=== PATIENT | male | born 1985 | race Two or more races ===

== ENCOUNTER 2024-07-17 21:26 | Emergency (ER) | payer MEDICAID, OTHER ==
[~2024-07-17] VITALS: Ht 167.6 cm; Wt 82.1 kg
--- NOTE | 2024-07-17 21:58 | ED.PDOC ---
[place]. trauma (HPI) HPI Comments 38-year-old male Came to ER for fall injury. Patient was working at the roof earlier, when he accidentally fell off landing badly on his left side. Patient denies any head trauma or loss of consciousness. Patient complaining of anterior chest wall pain and abdominal pain, complaining of left shoulder, left elbow, and left knee pain as well. Chief Complaint: Fall Injury Time Seen by MD: 21:57 Reviewed notes: Nurses Notes Allergies: Coded Allergies: NO KNOWN ALLERGIES (Unverified , 07/17/24) Home Meds Active Scripts Gabapentin (Once-Daily) (Gabapentin) 300 Mg Tab, 300 MG PO Q6HP PRN, #60 TAB Prov:NENA LI MD 07/18/24 Hydrocodone-Acetaminophen (Hydrocodone Bitartrate/AC 5-325 mg) 1 Tab Tab, 1 TAB PO Q6HP PRN, #20 TAB Prov:NENA LI MD 07/18/24 Information Source: Patient Mode of Arrival: Ambulatory Severity: Moderate Timing: Minutes Duration: Since onset Location: Abdominal, Chest, (L) Elbow, (L) Knee, (L) Shoulder Mechanism: Fall Past Medical History PAST MEDICAL HISTORY: Denies Surgical History: Denies all surgeries Family History Family History: Reviewed,noncontributory to illness Social History Smoker: Non-Smoker Alcohol: Denies ETOH Use Drugs: Denies Drug Use Lives In: Home Constitutional: denies: chills, diaphoresis, fatigue, fever, malaise, sweats, weakness, others EENTM: denies: blurred vision, double vision, ear bleeding, ear discharge, ear drainage, ear pain, ear ringing, eye pain, eye redness, hearing loss, mouth pain, mouth swelling, nasal discharge, nose bleeding, nose congestion, nose pain, photophobia, tearing, throat pain, throat swelling, voice changes, others Respiratory: denies: cough, hemoptysis, orthopnea, SOB at rest, shortness of breath, SOB with excertion, stridor, wheezing, others Cardiovascular: reports: chest pain; denies: dizzy spells, diaphoresis, Dyspnea on exertion, edema, irregular heart beat, left arm pain, lightheadedness, palpitations, PND, syncope, others Gastrointestinal: reports: abdominal pain; denies: abdomen distended, blood streaked bowels, constipated, diarrhea, dysphagia, difficulty swallowing, hematemesis, melena, nausea, poor appetite, poor fluid intake, rectal bleeding, rectal pain, vomiting, others Genitourinary: denies: burning, dysuria, flank pain, frequency, hematuria, incontinence, penile discharge, penile sore, pain, testicle pain, testicle swelling, urgency, others Neurological: denies: dizziness, fainting, headache, left sided numbness, left sided weakness, numbness, paresthesia, pre-existing deficit, right sided numbness, right sided weakness, seizure, speech problems, tingling, tremors, weakness, others Musculoskeletal: reports: joint pain (Left shoulder, left elbow, left knee); denies: back pain, gout, joint swelling, muscle pain, muscle stiffness, neck pain, others Integumetry: denies: bruises, change in color, change in hair/nails, dryness, laceration, lesions, lumps, rash, wounds, others Allergic/Immunocompromised: denies: Difficulty Healing, Frequent Infections, Hi ves, Itching, others Hematologic/Lymphatic: denies: anemia, blood clots, easy bleeding, easy bruising, swollen glands, others Endocrine: denies: excessive hunger, excessive sweating, excessive thirst, excessive urination, flushing, intolerance to cold, intolerance to heat, unexplained weight gain, unexplained weight loss, others Psychiatric: denies: anxiety, bipolar disorder, depression, hopeless, panic disorder, schizophrenia, sleepless, suicidal, others Physical Exam General Appearance: No Apparent Distress, Normal HEENT: Normal ENT Inspection, Pharynx Normal, TMs Normal Neck: Full Range of Motion, Non-Tender, Normal, Normal Inspection Respiratory: Chest Non-Tender, Lungs Clear, No Accessory Muscle Use, No Respiratory Distress, Normal Breath Sounds Cardiovascular: No Edema, No JVD, No Murmur, No Gallop, Normal Peripheral P ulses, Regular Rate/Rhythm Breast Exam: Deferred Gastrointestinal: No Organomegaly, Non Tender, No Pulsatile Mass, Normal Bowel Sounds, Soft Genitalia: Deferred Pelvic: Deferred Rectal: Deferred Extremities: No calf tenderness, Normal capillary refill, Normal inspection, Normal range of motion, Non-tender, No pedal edema Musculoskeletal : Apperance: Normal Neurologic: Alert, press service reader II-XII nml as Tested, No Motor Deficits, Normal Affect, Normal Mood, No Sensory Deficits Cerebellar Function: Normal Reflexes: Normal Skin: Dry, Normal Color, Warm Lymphatic: No Adenopathy Was a procedure done? Was a procedure done?: No Differential Diagnosis Multiple Trauma: Fractures, Intraabdominal Injury, Pulmonary Contusion, Spine Injury, Other (Dislocation) X-Ray, Labs, Meds, VS Vital Signs Date Time Temp Pulse Resp B/P (MAP) Pulse Ox O2 Delivery O2 Flow Rate FiO2 07/18/24 00:56 80 25 120/74 (89) 95 07/18/24 00:03 73 19 134/75 07/18/24 00:00 73 19 134/75 (94) 95 07/17/24 22:16 70 23 131/79 07/17/24 22:00 70 23 96 Room Air* 0 21 07/17/24 22:00 99.1 70 23 131/79 (96) 96 99.1 07/17/24 21:40 99.6 80 16 112/71 (85) 98 99.6 Lab Test 07/17/24 22:05 Range/Units White Blood Count 10.6 4.4-10.8 10^3/uL Red Blood Count 5.21 4.5-5.90 10^6/uL Hemoglobin 15.9 13.5-17.5 g/dL Hematocrit 47.2 41.0-53.0 % Mean Corpuscular Volume 90.6 80.0-100.0 fL Mean Corpuscular Hemoglobin 30.5 28.0-32.0 pg Mean Corpuscular Hemoglobin Concent 33.7 32.0-36.0 g/dL Red Cell Distribution Width 12.8 11.8-14.3 % Platelet Count 302 140-450 10^3/uL Mean Platelet Volume 7.9 6.9-10.8 fL Neutrophils (%) (Auto) 83.5 H 37.0-80.0 % Lymphocytes (%) (Auto) 12.3 10.0-50.0 % Monocytes (%) (Auto) 3.5 0.0-12.0 % Eosinophils (%) (Auto) 0.4 0.0-7.0 % Basophils (%) (Auto) 0.3 0.0-2.0 % Neutrophils # (Auto) 8.9 H 1.6-8.6 10 ^3/uL Lymphocytes # (Auto) 1.3 0.4-5.4 10 ^3/uL Monocytes # (Auto) 0.4 0-1.3 10 ^3/uL Eosinophils # (Auto) 0 0-0.8 10 ^3/uL Basophils # (Auto) 0 0-0.2 10 ^3/uL Nucleated Red Blood Cells 0.0 % Sodium Level 142 136-145 mmol/L Potassium Level 4.3 3.5-5.1 mmol/L Chloride Level 108 H 98-107 mmol/L Carbon Dioxide Level 26 20-31 mmol/L Anion Gap 8 5-15 Blood Urea Nitrogen 13 9-23 mg/dL Creatinine 0.94 0.700-1.30 mg/dL Glomerular Filtration Rate Calc 106 >90 mL/min BUN/Creatinine Ratio 13.8 10.0-20.0 Serum Glucose 90 74-106 mg/dL Calcium Level 10.1 8.7-10.4 mg/dL Total Bilirubin 0.5 0.2-1.0 mg/dL Aspartate Amino Transferase (AST) 29 13-40 U/L Alanine Aminotransferase (ALT) 41 H 7-40 U/L Alkaline Phosphatase 50 46-116 U/L Total Protein 7.1 5.7-8.2 g/dL Albumin 4.7 3.2-4.8 g/dL Current Medications Medications (Trade) Dose Ordered Sig/Ben Route Start Time Stop Time Status Last Admin Sodium Chloride 1,000 ml @ 1,000 mls/hr Q1H ONCE IVB 07/17/24 22:00 07/17/24 22:59 DC 07/17/24 22:16 Morphine Sulfate 4 mg ONCE ONCE IV 07/17/24 22:00 07/17/24 22:01 DC 07/17/24 22:16 PROCEDURE(s): RSHD2 - R SHOULDER 2+ VIEW XRAY CLINICAL INDICATION: pain injury TECHNIQUE: XY R SHOULDER 2+ VIEW XRAY Comparison: None FINDINGS / IMPRESSION: No osseous or joint abnormality identified with no fracture or dislocation. PROCEDURE(s): RELB3 - R ELBOW 3 VIEW XRAY 3 views of the right elbow CLINICAL HISTORY: pain injury COMPARISON: None Findings and impression: Question elbow joint effusion which may be projectional. Apparent nondisplaced fracture of the lateral aspect of the radial head. No other grossly displaced fractures or dislocations are evident on the provided views. PROCEDURE(s): RKNE2 - R KNEE 2V XRAY CLINICAL INDICATION: pain injury TECHNIQUE: XY R KNEE 2V XRAY Comparison: None FINDINGS / IMPRESSION: No osseous or joint abnormality identified with no fracture or dislocation. Exam: CT CT CHEST/AB/PL W CON- IV ONLY Findings: Evaluation of solid organs is limited due to lack of intravenous contrast use. Lungs: Mild dependent subsegmental atelectasis. Otherwise unremarkable. Pleura: No pleural effusion or pneumothorax. Heart / Vessels: Normal heart size. No pericardial effusion. Normal thoracic aorta. Mediastinum: No abnormality demonstrated. No lymphadenopathy. Liver: Liver is normal in size. No focal lesions noted. Gallbladder and Biliary Tree: No abnormality demonstrated. Spleen: No abnormality demonstrated. Pancreas: No abnormality demonstrated. Adrenal Glands: No abnormality demonstrated. Kidneys: No abnormality demonstrated. Bladder: Grossly unremarkable for degree of distention. Bowel: Stomach appears grossly unremarkable. No abnormally dilated or thick- walled loops of large or small bowel noted. Appendix appears unremarkable. Ascites: Absent Lymphadenopathy: No evidence of lymphadenopathy. Abdominal Wall and Mesentery: Unremarkable. Vasculature: Unremarkable. Pelvic Organs: Unremarkable Musculoskeletal: No bony lesions or fracture. IMPRESSION: No significant abnormality demonstrated. Radiation optimization: All CT scans at this facility use at least one of these dose optimization techniques: automated exposure control mA and/or kV adjustment per patient size (includes targeted exams where dose is matched to clinical indication) or iterative reconstruction. Time of 1ST Reevaluation: 21:55 Reevaluation 1ST: Unchanged Patient Education/Counseling: Diagnosis, Treatment Family Education/Counseling: No Family Present Departure 1 Departure Time of Disposition: 00:10 Impression: Primary Impression: Elbow fracture, right Additional Impressions: Radial head fracture, closed Chest wall contusion Disposition: 01 HOME / SELF CARE / HOMELESS Condition: Stable e-Prescriptions Gabapentin (Once-Daily) (Gabapentin) 300 Mg Tab 300 MG PO Q6HP PRN, #60 TAB Prov: NENA LI MD 07/18/24 Hydrocodone-Acetaminophen (Hydrocodone Bitartrate/AC 5-325 mg) 1 Tab Tab 1 TAB PO Q6HP PRN, #20 TAB Prov: NENA LI MD 07/18/24 Discharged With: Self Critical Care Note Critical Care Time?: No Stability Stability form required: No Heart Score Heart Score: Heart Score Response (Comments) Value History N/A 0 EKG N/A 0 Age N/A 0 Risk Factors N/A 0 Troponin N/A 0 Total 0 I personally scribed for NENA LI MD ([email or web address]) on 07/17/24 at 21:58. Electronically submitted by Michel Massey ([facility] [employer] [facility]). I personally scribed for NENA LI MD ([email or web address]) on 07/18/24 at 00:29. Electronically submitted by Michel Massey ([facility] NENA LI MD July 17, 2024 21:58
[2024-07-17 22:00] VITALS: PULSE 70; RESP 23; TEMP 99.1; O2SAT 96
[2024-07-17 22:13] LABS: Basophils # (auto) 0 10 ^3/uL (0-0.2); Basophils % (auto) 0.3 % (0.0-2.0); Eosinophils # (auto) 0 10 ^3/uL (0-0.8); Eosinophils % (auto) 0.4 % (0.0-7.0); Hematocrit 47.2 % (41.0-53.0); Hemoglobin 15.9 g/dL (13.5-17.5); Lymphocytes # (auto) 1.3 10 ^3/uL (0.4-5.4); Lymphocytes % (auto) 12.3 % (10.0-50.0); Mean Corpuscular Hemoglobin 30.5 pg (28.0-32.0); Mean Corpuscular Hgb Conc. 33.7 g/dL (32.0-36.0); Mean Corpuscular Volume 90.6 fL (80.0-100.0); Monocytes # (auto) 0.4 10 ^3/uL (0-1.3); Monocytes % (auto) 3.5 % (0.0-12.0); Neutrophils # (auto) 8.9 10 ^3/uL (1.6-8.6); Neutrophils % (auto) 83.5 % (37.0-80.0); Platelet Count (auto) 302 10^3/uL (140-450); Red Blood Cells 5.21 10^6/uL (4.5-5.90); Red Cell Distribution Width 12.8 % (11.8-14.3); White Blood Cell 10.6 10^3/uL (4.4-10.8)
[2024-07-17] MEDS: MORPHINE SULFATE 4 MG/ML SYR/VIAL IV ONE (22:16)
[2024-07-17] MEDS: SODIUM CHLORIDE 0.9% 1,000 ML IVB ONE (22:16)
[2024-07-17] MEDS: ONDANSETRON HCL 4 MG/2 ML VIAL IV ONE (22:17)
[2024-07-17 22:29] LABS: Alkaline Phosphatase 50 U/L (46-116); Anion Gap 8 (5-15); Aspartate Aminotransferase 29 U/L (13-40); BUN/Creatinine Ratio 13.8 (10.0-20.0); Blood Urea Nitrogen 13 mg/dL (9-23); Calcium 10.1 mg/dL (8.7-10.4); Carbon Dioxide 26 mmol/L (20-31); Glucose 90 mg/dL (74-106); Potassium 4.3 mmol/L (3.5-5.1); Sodium 142 mmol/L (136-145); Total Protein 7.1 g/dL (5.7-8.2)
[2024-07-17 22:30] LABS: Albumin 4.7 g/dL (3.2-4.8); Bilirubin, Total 0.5 mg/dL (0.2-1.0)
[2024-07-17 22:33] LABS: Alanine Aminotransferase 41 U/L (7-40); Chloride 108 mmol/L (98-107)
[2024-07-17] MEDS: IOHEXOL 300 MG/ML 100ML BOTTLE IJ ONE (23:18)
--- NOTE | 2024-07-18 00:04 | DVH ---
CLINICAL INDICATION: pain injury TECHNIQUE: XY R SHOULDER 2+ VIEW XRAY Comparison: None FINDINGS / IMPRESSION: No osseous or joint abnormality identified with no fracture or dislocation.
--- NOTE | 2024-07-18 00:05 | DVH ---
CLINICAL INDICATION: pain injury TECHNIQUE: XY R KNEE 2V XRAY Comparison: None FINDINGS / IMPRESSION: No osseous or joint abnormality identified with no fracture or dislocation.
--- NOTE | 2024-07-18 00:15 | DVH ---
EXAMINATIONS: 3 views of the right elbow CLINICAL HISTORY: pain injury COMPARISON: None Findings and impression: Question elbow joint effusion which may be projectional. Apparent nondisplaced fracture of the lateral aspect of the radial head. No other grossly displaced fractures or dislocations are evident on the provided views.
--- NOTE | 2024-07-18 00:18 | DVH ---
Exam: CT CT CHEST/AB/PL W CON- IV ONLY History: fell off the roof to ground, pain Comparison Study: None Technique: Multidetector spiral CT of the abdomen was performed from lung bases to pubic symphysis. Imaging was performed without IV contrast. Axial, coronal and sagittal multiplanar reformats were ob tained from the axial data set by the technologist. Radiation Dose : 1. Abdomen/Pelvis: CTDIvol mGy, DLP mGy*cm. Findings: Evaluation of solid organs is limited due to lack of intravenous contrast use. Lungs: Mild dependent subsegmental atelectasis. Otherwise unremarkable. Pleura: No pleural effusion or pneumothorax. Heart / Vessels: Normal heart size. No pericardial effusion. Normal thoracic aorta. Mediastinum: No abnormality demonstrated. No lymphadenopathy. Liver: Liver is normal in size. No focal lesions noted. Gallbladder and Biliary Tree: No abnormality demonstrated. Spleen: No abnormality demonstrated. Pancreas: No abnormality demonstrated. Adrenal Glands: No abnormality demonstrated. Kidneys: No abnormality demonstrated. Bladder: Grossly unremarkable for degree of distention. Bowel: Stomach appears grossly unremarkable. No abnormally dilated or thick-walled loops of large or small bowel noted. Appendix appears unremarkable. Ascites: Absent Lymphadenopathy: No evidence of lymphadenopathy. Abdominal Wall and Mesentery: Unremarkable. Vasculature: Unremarkable. Pelvic Organs: Unremarkable Musculoskeletal: No bony lesions or fracture. IMPRESSION: No significant abnormality demonstrated. Radiation optimization: All CT scans at this facility use at least one of these dose optimization dayan hniques: automated exposure control mA and/or kV adjustment per patient size (includes targeted exam s where dose is matched to clinical indication) or iterative reconstruction.
[2024-07-18] MEDS ORDERED: GABA300T4 PO (00:47)
[2024-07-18] MEDS ORDERED: HYDR-4902 PO (00:47)
[2024-07-18 00:56] VITALS: BP 120/74; PULSE 80; RESP 25; O2SAT 95
== END 2024-07-18 00:57 | disposition home or self-care (01) ==
LOC: ER 21:26
DX: S52.124A Nondisplaced fracture of head of right radius, initial encounter for closed fracture (principal); S20.219A Contusion of unspecified front wall of thorax, initial encounter; Z79.899 Other long term (current) drug therapy; W13.2XXA Fall from, out of or through roof, initial encounter; Y93.89 Activity, other specified; Y92.89 Other specified places as the place of occurrence of the external cause; Y99.0 Civilian activity done for income or pay
CPT/HCPCS: 29105; 36415; 71260; 73030; 73080; 73560; 74177; 80053; 85025; 96361; 96374; 99285; J2270; J7030; Q9967